=== PATIENT | female | born 2000 | race Caucasian/White ===

== ENCOUNTER 2024-09-25 00:04 | Emergency (ER) | payer SELFPAY ==
[2024-09-25] MEDS ORDERED: Acetaminophen 500 MG TAB ONE (00:40)
[2024-09-25] MEDS ORDERED: Ondansetron PF 4 MG/2 ML Vial ONE (00:40)
[2024-09-25 00:41] LABS: Hematocrit 34.7 % (36.0-47.0); Hemoglobin 12.0 g/dL (12.0-16.0); Mean Corpuscular Hemoglobin 31.0 pg (27.0-31.0); Mean Corpuscular Volume 89.7 fL (78.0-98.0); Platelet Count 108 10x3/uL (130-400); Red Blood Cell (RBC) Count 3.87 mill/uL (4.20-5.40); White Blood Cell (WBC) Count 5.07 10x3/uL (4.8-10.8)
[2024-09-25] MEDS ORDERED: cefTRIAXone (ROCEPHIN) 1 GM VIAL ONE (00:41)
[2024-09-25 00:52] LABS: ALT (SGPT) 19 U/L (Less than 34); AST (SGOT) 22 U/L (11-34); Albumin 4.2 g/dL (3.1-4.5); Alkaline Phosphatase 81 U/L (40-110); Anion Gap 17 mmol/L (10-20); BUN (Urea Nitrogen) 6 mg/dL (7.0-18.7); Bilirubin, Total 1.0 mg/dL (0.3-1.2); Calc. Creatinine Clearance 0 mL/min (70-130); Calcium 9.2 mg/dL (7.8-10.44); Carbon Dioxide 22 mmol/L (22-29); Chloride 105 mmol/L (98-107); Globulin 3.5 g/dL (2.4-3.5); Glucose 123 mg/dL (70-105); Lipase 31 U/L (8-78); Magnesium 1.7 mg/dL (1.6-2.6); Potassium 3.5 mmol/L (3.5-5.1); Sodium 140 mmol/L (136-145)
[2024-09-25 01:25] LABS: Platelet Adequacy Comment Platelets Decreased; Polychromasia SLIGHT = 2-3 cells HPF (0-2)
[2024-09-25] MEDS ORDERED: Ketorolac Tromethamine 30 MG (1 mL) VIAL ONE (01:29)
[2024-09-25 02:02] LABS: Bacteria/HPF 2+ HPF (None Seen); CAUTI Indications for Culture Pelvic or flank pain; Glucose, Urine (Dipstick) Normal (Negative); Leukocyte 500 Leu/uL (Negative); Protein, Urine (Dipstick) 200 mg/dL (Neg-Trace); RBC/HPF 21-50 HPF (0-3); Specific Gravity, Urine 1.015 (1.002-1.036); WBC/HPF Greater than 50 HPF (0-3)
[2024-09-25 02:03] LABS: Urine Culture Reflex Yes Yes
[2024-09-25] MEDS ORDERED: Iopamidol-370 76% 500 ML MDV (1 ML CHARGE) ONE (11:52)
== END 2024-09-25 03:15 | disposition home or self-care (01) ==
LOC: ERS 00:04
DX: N30.90 Cystitis, unspecified without hematuria (principal)
CPT/HCPCS: 36415; 74177; 76856; 80053; 81001; 83605; 83690; 83735; 84702; 85025; 86850; 86900; 86901; 87040; 87077; 87086; 87149; 87186; 93005; 96361; 96365; 96366; 96375; J0696; J1885; J2270; J2405; Q9967